=== PATIENT | male | born 1990 | race Caucasian/White ===

== ENCOUNTER 2017-09-12 17:33 | Emergency (ER) | payer SELFPAY ==
[2017-09-12] MEDS ORDERED: Fentanyl 100 MCG/2 ML VIAL ONE (17:39)
[2017-09-12 17:48] LABS: #Basophils 0.1 thou/uL (0.0-0.2); #Eosinphils 0.1 thou/uL (0.0-0.7); #Lymphocytes 3.4 thou/uL (1.20-3.40); #Monocytes 1.2 thou/uL (0.11-0.59); #Neutrophils 9.5 thou/uL (1.40-6.50); %Basophils 0.7 % (0.0-1.0); %Eosinophils 0.7 % (0.0-10.0); %Lymphocytes 23.6 % (21.0-51.0); %Monocytes 8.4 % (0.0-10.0); %Neutrophils 66.6 % (42.0-75.0); Hemoglobin 15.7 g/dL (14.0-18.0); Mean Corpuscular HGB CONC 35.3 g/dL (32.0-36.0); Mean Corpuscular Hemoglobin 30.3 pg (27.0-31.0); Mean Corpuscular Volume 85.8 fl (80.0-94.0); Mean Platelet Volume 8.2 fL (7.4-10.4); Platelet Count 194 thou/uL (130-400); RBC Distribution Width 11.8 % (11.5-14.5); Red Blood Cell (RBC) Count 5.17 mill/uL (4.70-6.10); White Blood Cell (WBC) Count 14.2 thou/uL (4.8-10.8)
[2017-09-12] MEDS ORDERED: Fluorescein Opthalmic Strip ONE (17:56)
[2017-09-12 18:04] LABS: ALT (SGPT) 24 U/L (8-55); AST (SGOT) 20 U/L (5-34); Albumin 4.9 g/dL (3.5-5.0); Alkaline Phosphatase 90 U/L (40-150); Anion Gap 14 mmol/L (10-20); BUN (Urea Nitrogen) 14 mg/dL (8.9-20.6); Bilirubin, Total 0.8 mg/dL (0.2-1.2); Calc. Creatinine Clearance 0 mL/min (70-130); Calcium 9.8 mg/dL (7.8-10.44); Carbon Dioxide 28 mmol/L (22-29); Chloride 102 mmol/L (98-107); Estimated GFR-MDRD 69; Globulin 3.5 g/dL (2.4-3.5); Glucose 97 mg/dL (70-105); Potassium 3.5 mmol/L (3.5-5.1); Protein, Total 8.4 g/dL (6.0-8.3); Sodium 140 mmol/L (136-145)
[2017-09-12] MEDS ORDERED: Morphine 4 MG/ML Carpuject ONE ×2 (18:12→21:58)
[2017-09-12] MEDS ORDERED: Bacitracin Zinc 1 Packet ONE (18:57)
--- NOTE | 2017-09-12 22:42 | RAD ---
PORTABLE CHEST: 09/12/17 An AP portable film at 1728 shows a normal sized heart and clear lungs. There is no pulmonary edema, infiltrate, or effusion. The mediastinum appears normal and the trachea is midline. IMPRESSION: No acute finding. POS: HOME
== END 2017-09-12 22:06 | disposition short-term general hospital (02) ==
LOC: BURERS 17:33
DX: T21.11XA Burn of first degree of chest wall, initial encounter (principal); T22.141A Burn of first degree of right axilla, initial encounter; T20.17XA Burn of first degree of neck, initial encounter; T20.19XA Burn of first degree of multiple sites of head, face, and neck, initial encounter; S05.02XA Injury of conjunctiva and corneal abrasion without foreign body, left eye, initial encounter; F17.210 Nicotine dependence, cigarettes, uncomplicated; X10.2XXA Contact with fats and cooking oils, initial encounter
CPT/HCPCS: 71045; 80053; 83605; 85025; 96374; 96375; 96376; G0390; J2270; J3010

== ENCOUNTER 2018-06-08 16:10 | Emergency (ER) | payer SELFPAY ==
[2018-06-08] MEDS ORDERED: Fluorescein Opthalmic Strip ONE (16:18)
[2018-06-08] MEDS ORDERED: Gentamicin Ophth Soln 0.3% 5 ml Bottle ONE (16:26)
== END 2018-06-08 16:45 | disposition home or self-care (01) ==
LOC: BURERS 16:10
DX: S05.01XA Injury of conjunctiva and corneal abrasion without foreign body, right eye, initial encounter (principal); F17.210 Nicotine dependence, cigarettes, uncomplicated; W45.8XXA Other foreign body or object entering through skin, initial encounter
CPT/HCPCS: 99283

== ENCOUNTER 2020-05-23 12:18 | Emergency (ER) | payer SELFPAY ==
[2020-05-23] MEDS ORDERED: Ketorolac Tromethamine 30 MG/ML VIAL ONE (12:37)
[2020-05-23] MEDS ORDERED: Cyclobenzaprine 10 MG TAB ONE (12:37)
== END 2020-05-23 12:54 | disposition home or self-care (01) ==
LOC: BURERS 12:18
DX: M62.838 Other muscle spasm (principal); F17.210 Nicotine dependence, cigarettes, uncomplicated
CPT/HCPCS: 96372; 99283; J1885